=== PATIENT | male | born 1940 | race Caucasian/White ===

== ENCOUNTER 2017-04-18 10:04 | Emergency (ER) | payer OTHER ==
[~2017-04-18] VITALS: Ht 162.6 cm; Wt 74.8 kg
[2017-04-18] MEDS ORDERED: [UNRECOGNIZED DRUG - OTHER] PO (10:13)
[2017-04-18] MEDS ORDERED: INDA125TA PO (10:13)
[2017-04-18] MEDS ORDERED: [UNRECOGNIZED DRUG - OTHER] PO (10:13)
[2017-04-18] MEDS ORDERED: FOSI10TA10 PO (10:13)
[2017-04-18] MEDS ORDERED: KETOROLAC 30 MG/ML VIAL (J1885) IV ONE (11:30)
[2017-04-18 11:48] LABS: BASO % 0.2 % (0.0-1.0); EOS # 0.1 K/mm3 (0.0-0.50); EOS % 1.3 % (0.0-3.0); LARGE UNSTAINED CELL # 0.2 K/mm3 (0.0-0.4); LARGE UNSTAINED CELL % 2.3 % (0.0-4.0); LYMPH # 1.5 K/mm3 (1.5-4.5); MEAN CORPUSCULAR HEMOGLOBIN 33.4 pg (27.0-33.0); MEAN CORPUSCULAR HGB CONC 34.7 g/dl (32.0-36.5); MEAN CORPUSCULAR VOLUME 96.4 fl (80.0-96.0); MONO # 0.5 K/mm3 (0.0-0.8); MONO % 6.1 % (0.0-5.0); NEUTROPHILS # 5.8 K/mm3 (1.8-7.7); PLATELET COUNT, AUTOMATED 313 k/mm3 (150-450); RED CELL DISTRIBUTION WIDTH 12.4 % (11.5-14.5); WHITE BLOOD COUNT 8.1 K/mm3 (4.0-10.0)
[2017-04-18 12:09] LABS: ANION GAP 5 MEQ/L (8-16); BLOOD UREA NITROGEN 17 MG/DL (7-18); CALCIUM LEVEL 9.8 MG/DL (8.8-10.2); CARBON DIOXIDE LEVEL 30 MEQ/L (21-32); CHLORIDE LEVEL 102 MEQ/L (98-107); CREATININE FOR GFR 0.72 MG/DL (0.70-1.30); GLOMERULAR FILTRATION RATE > 60.0 (>42); GLUCOSE, FASTING 102 MG/DL (83-110); POTASSIUM SERUM 3.9 MEQ/L (3.5-5.1); SODIUM LEVEL 137 MEQ/L (136-145)
[2017-04-18 12:39] VITALS: BP 128/77
[2017-04-18] MEDS ORDERED: PRED20TA PO (12:51)
[2017-04-18] MEDS ORDERED: CYCL5TA PO (12:51)
--- NOTE | 2017-04-18 12:54 | REP ---
CT ABDOMEN/PELVIS WITHOUT IV CONTRAST: CT abdomen/pelvis performed without oral or IV contrast, with sagittal and coronal reconstruction images performed. Calcified granuloma is seen in the visualized right lung base anteriorly. Liver, gallbladder, spleen, adrenals, pancreas, and kidneys are grossly unremarkable. There is no evidence of renal or ureteral calculus and no hydroureteronephrosis. There are atherosclerotic calcifications of the abdominal aorta without aneurysm. There is no adenopathy. There is no free air or free fluid. There is no bowel wall thickening. Prostate is enlarged. Urinary bladder demonstrates a diverticulum on the right with possible diffuse wall thickening. IMPRESSION: No renal or ureteral calculus and no hydroureteronephrosis. Enlarged prostate. No other acute finding. Signed by Tayo Choudhury MD 04/20/2017 06:57 P
== END 2017-04-18 13:36 | disposition home or self-care (01) ==
LOC: M ED 11:38
DX: S29.012A Strain of muscle and tendon of back wall of thorax, initial encounter (principal); X58.XXXA Exposure to other specified factors, initial encounter; Y92.89 Other specified places as the place of occurrence of the external cause; Y93.89 Activity, other specified; Y99.9 Unspecified external cause status
CPT/HCPCS: 74176; 80048; 85025; 86140; 96374; 99284; J1885

== ENCOUNTER 2017-04-22 10:13 | Emergency (ER) | payer OTHER ==
[~2017-04-22] VITALS: Ht 162.6 cm; Wt 77.4 kg
[~2017-04-22 10:13] MED LIST: CYCL5TA PO; FOSI10TA10 PO; INDA125TA PO; PRED20TA PO; [UNRECOGNIZED DRUG - OTHER] PO; [UNRECOGNIZED DRUG - OTHER] PO
[2017-04-22 11:12] LABS: BASO % 0.3 % (0.0-1.0); EOS % 0.5 % (0.0-3.0); LARGE UNSTAINED CELL # 0.2 K/mm3 (0.0-0.4); LARGE UNSTAINED CELL % 2.2 % (0.0-4.0); LYMPH # 2.5 K/mm3 (1.5-4.5); LYMPH % 23.4 % (24.0-44.0); MEAN CORPUSCULAR HEMOGLOBIN 33.5 pg (27.0-33.0); MEAN CORPUSCULAR HGB CONC 34.9 g/dl (32.0-36.5); MEAN CORPUSCULAR VOLUME 95.8 fl (80.0-96.0); MONO # 0.7 K/mm3 (0.0-0.8); MONO % 6.3 % (0.0-5.0); NEUTROPHILS # 7.1 K/mm3 (1.8-7.7); NEUTROPHILS % 67.4 % (36.0-66.0); PLATELET COUNT, AUTOMATED 380 k/mm3 (150-450); RED CELL DISTRIBUTION WIDTH 12.3 % (11.5-14.5); WHITE BLOOD COUNT 10.5 K/mm3 (4.0-10.0)
[2017-04-22 11:28] LABS: ANION GAP 5 MEQ/L (8-16); BLOOD UREA NITROGEN 23 MG/DL (7-18); CALCIUM LEVEL 9.4 MG/DL (8.8-10.2); CARBON DIOXIDE LEVEL 34 MEQ/L (21-32); CHLORIDE LEVEL 100 MEQ/L (98-107); CREATININE FOR GFR 0.83 MG/DL (0.70-1.30); GLOMERULAR FILTRATION RATE > 60.0 (>42); GLUCOSE, FASTING 95 MG/DL (83-110); POTASSIUM SERUM 3.6 MEQ/L (3.5-5.1); SODIUM LEVEL 139 MEQ/L (136-145)
[2017-04-22] MEDS ORDERED: BACL10TA2 PO (13:07)
[2017-04-22] MEDS ORDERED: TYLE325T5 PO (13:07)
[2017-04-22] MEDS ORDERED: ACETAMINOPHEN TAB 650MG DOSE (2X325MG) PO ONE (13:15)
[2017-04-22 13:24] VITALS: BP 148/95
--- NOTE | 2017-04-22 14:10 | REP ---
THORACOLUMBAR SPINE, THREE VIEWS: HISTORY: Back pain. There is no acute fracture or subluxation. There is an old compression fracture of a midthoracic vertebral body with minimal height loss. There is loss of height of several mid and lower thoracic intervertebral discs. Osteophytes are present throughout the thoracic spine. IMPRESSION: Degenerative change as described above. Signed by Eriberto Stokes MD 04/22/2017 02:24 P
--- NOTE | 2017-04-22 14:12 | REP ---
LUMBAR SPINE, FIVE VIEWS: HISTORY: Back pain. There is no acute fracture. The intervertebral discs are decreased in height, consistent with disc degeneration. Osteophytes are present throughout the lumbar spine. There is narrowing of the L4-5 and L5-S1 facet joints with associated sclerosis. IMPRESSION: Degenerative change, as described above. Signed by Eriberto Stokes MD 04/22/2017 02:24 P
--- NOTE | 2017-04-22 14:24 | REP ---
CT CHEST WITHOUT CONTRAST: HISTORY: Rule out mass. The lungs are clear. There is no pleural effusion. A calcified lymph node 11 mm in width is present in the mediastinum. Small lymph nodes, less than 1 cm in size are present in the mediastinum. Atherosclerotic calcification is present in the thoracic aorta. Degenerative change is present in the thoracic spine. A small hiatal hernia is present. Impression:1. Old granulomatous disease. 2. Small hiatal hernia. Signed by Eriberto Stokes MD 04/22/2017 02:32 P
== END 2017-04-22 13:25 | disposition home or self-care (01) ==
LOC: M ED 10:52
DX: M62.830 Muscle spasm of back (principal)